=== PATIENT | male | born 1975 | race Two or more races ===

== ENCOUNTER 2018-08-06 13:29 | Outpatient (CLI) | payer OTHER | END 2018-08-06 14:58 | disposition home or self-care (01) | LOC: SONOGRAMA 13:29 | DX: E04.1 Nontoxic single thyroid nodule (principal) ==

== ENCOUNTER 2018-08-15 08:02 | Outpatient (CLI) | payer OTHER | END 2018-08-15 08:09 | disposition home or self-care (01) | LOC: SONOGRAMA 08:02 → MAMO-SONO 08:45 | DX: R10.84 Generalized abdominal pain (principal) ==

== ENCOUNTER 2019-11-23 13:09 | Outpatient (CLI) | payer OTHER | END 2019-11-23 13:13 | disposition home or self-care (01) | LOC: LAB 13:09 | DX: N40.0 Benign prostatic hyperplasia without lower urinary tract symptoms (principal); N40.1 Benign prostatic hyperplasia with lower urinary tract symptoms ==

== ENCOUNTER 2022-07-09 07:54 | Emergency (ER) | payer OTHER ==
[~2022-07-09] VITALS: Ht 182.9 cm; Wt 100.7 kg
[2022-07-09] MEDS ORDERED: ROSUVASTATIN CA20 MG PO (08:03)
[2022-07-09] MEDS ORDERED: VALSARTAN-HCTZ1 EAC3 PO (08:03)
== END 2022-07-09 12:55 | disposition home or self-care (01) ==
LOC: ER 07:54
DX: R42 Dizziness and giddiness (principal); R51.9 Headache, unspecified; I10 Essential (primary) hypertension; Z20.822 Contact with and (suspected) exposure to COVID-19

== ENCOUNTER → 2022-09-03 | Outpatient (CLI) | payer OTHER ==
[~2022-09-03] MED LIST: ROSUVASTATIN CA20 MG PO; VALSARTAN-HCTZ1 EAC3 PO
== END | disposition home or self-care (01) ==
LOC: MRI 09:55
PROVIDERS: ATTEND Physical Medicine & Rehabilitation
DX: M54.50 Low back pain, unspecified (principal); M53.3 Sacrococcygeal disorders, not elsewhere classified

== ENCOUNTER 2022-11-16 14:46 | Emergency (ER) | payer OTHER ==
[~2022-11-16] VITALS: Ht 185.4 cm; Wt 106.6 kg
[2022-11-16] MEDS ORDERED: DIOVAN320 MG PO (15:44)
== END 2022-11-16 20:56 | disposition home or self-care (01) ==
LOC: ER 14:46 → EMR PED 14:50 → ER 20:56
DX: R07.89 Other chest pain (principal); Z20.822 Contact with and (suspected) exposure to COVID-19

== ENCOUNTER 2023-11-04 10:43 | Outpatient (CLI) | payer OTHER ==
[~2023-11-04 10:43] MED LIST changes: +DIOVAN320 MG PO
== END 2023-11-04 10:52 | disposition home or self-care (01) ==
LOC: RAD 10:43
PROVIDERS: ATTEND Physical Medicine & Rehabilitation
DX: M54.2 Cervicalgia (principal)